=== PATIENT | male | born 1950 | race Caucasian/White ===

== ENCOUNTER → 2017-01-04 | Emergency (ER) | payer OTHER ==
[~2017-01-04] MED LIST: OLANZapine 10 MG TABLET ONE; OLANZapine 10 MG TABLET PO ONE
[2017-01-04 22:49] VITALS: BMI 30.4
--- NOTE | 2017-01-05 00:07 | PDOC ---
History of Present Illness - History of Present Illness Initial Comments: 01/05/17 00:36 Patient is a 66 year old male, from [facility], with significant medical hx of schizophrenia, HLD, GERD, and thyroid disorder who was sent to the ED for refusal of taking psychiatric medications and psychosis. Patient refuses to take his medications because he believes that he is "healed". The patient states that Nathen has healed him of his ailments and that he has been on the Tillson. The patient is supposed to be taking Zyprexa for his schizophrenia. The patient does not offer any complaints, including any pain. [facility] #: [phone] <Marixa Bass - Last Filed: 01/05/17 00:36> <Isrrael Jett - Last Filed: 01/05/17 02:09> <Isabel Goldstein - Last Filed: 01/06/17 22:39> - General Chief Complaint: Psychiatric Stated Complaint: PSYCH EVAL Time Seen by Provider: 01/04/17 22:44 Past History <Marixa Bass - Last Filed: 01/05/17 00:36> - Past Medical History Psychiatric Problems: Yes (SCHIZOPHRENIA) - Immunization History Immunization Up to Date: Yes - Psycho/Social/Smoking Cessation Hx Suicidal Ideation: No Smoking History: Unknown if ever smoked Information on smoking cessation initiated: No Hx Alcohol Use: No Drug/Substance Use Hx: No <Isrrael Jett - Last Filed: 01/05/17 02:09> <Isabel Goldstein - Last Filed: 01/06/17 22:39> - Past Medical History Allergies/Adverse Reactions: Allergies Allergy/AdvReac Type Severity Reaction Status Date / Time No Known Allergies Allergy Verified 01/04/17 22:47 Home Medications: Ambulatory Orders Amantadine HCl [Symmetrel -] 100 mg PO BID 01/04/17 Ascorbic Acid [Vitamin C] 500 mg PO DAILY 01/04/17 Aspirin [ASA -] 81 mg PO DAILY 01/04/17 Cholecalciferol (Vitamin D3) [Vitamin D3] 2,000 unit PO DAILY 01/04/17 Fluticasone Prop 0.05% Nasal [Flonase -] 1 - 2 spray NS DAILY 01/04/17 Hydrocortisone 0.5% Cream [Hytone 0.5% Cream -] 1 applic TP DAILY 01/04/17 Ibuprofen [Motrin -] 200 mg PO QID 01/04/17 Levothyroxine [Synthroid -] 112 mcg PO DAILY 01/04/17 Multivitamin [Poly-Vitamin] 1 each PO DAILY 01/04/17 Omeprazole 20 mg PO DAILY 01/04/17 Sennosides [Senna] 8.6 mg PO DAILY 01/04/17 Simvastatin [Zocor -] 20 mg PO HS 01/04/17 Docusate Sodium [Colace -] 100 mg PO AM 01/05/17 Docusate Sodium [Colace -] 200 mg PO HS 01/05/17 Iron 325 mg PO TID 01/05/17 Melatonin 5 mg PO HS 01/05/17 Olanzapine [Zyprexa -] 15 mg PO HS 01/05/17 Olanzapine [Zyprexa -] 20 mg PO HS 01/05/17 Trazodone HCl [Desyrel -] 50 mg PO HS 01/05/17 Zolpidem Tartrate [Ambien] 10 mg PO HS 01/05/17 Review of Systems - Review of Systems Comments:: 01/05/17 00:40 GENERAL/CONSTITUTIONAL: No fever or chills. No weakness. HEAD, EYES, EARS, NOSE AND THROAT: No change in vision. No ear pain or discharge. No sore throat. CARDIOVASCULAR: No chest pain or shortness of breath. RESPIRATORY: No cough, wheezing, or hemoptysis. GASTROINTESTINAL: No nausea, vomiting, diarrhea or constipation. GENITOURINARY: No dysuria, frequency, or change in urination. MUSCULOSKELETAL: No joint or muscle swelling or pain. No neck or back pain. SKIN: No rash NEUROLOGIC: No headache, vertigo, loss of consciousness, or change in strength/ sensation. <Marixa Bass - Last Filed: 01/05/17 00:36> *Physical Exam - Vital Signs Last Vital Signs Temp Pulse Resp BP Pulse Ox 97.5 F L 88 18 154/102 97 01/04/17 22:37 01/04/17 22:37 01/04/17 22:37 01/04/17 22:37 01/04/17 22:37 - Physical Exam Comments: 01/05/17 00:40 GENERAL: Awake, alert, in no acute distress HEAD: No signs of trauma EYES: PERRLA, EOMI, sclera anicteric, conjunctiva clear ENT: Auricles normal inspection, hearing grossly normal, nares patent, oropharynx clear without exudates. Moist mucosa NECK: Normal ROM, supple, no lymphadenopathy, JVD, or masses LUNGS: Breath sounds equal, clear to auscultation bilaterally. No wheezes, and no crackles HEART: Regular rate and rhythm, normal S1 and S2, no murmurs, rubs or gallops ABDOMEN: Soft, nontender, normoactive bowel sounds. No guarding, no rebound. No masses EXTREMITIES: Normal range of motion, no edema. No clubbing or cyanosis. No cords, erythema, or tenderness NEUROLOGICAL: Psychosis. Intermittently yelling and screaming. Cranial nerves II through XII grossly intact. Normal speech, normal gait SKIN: Warm, Dry, normal turgor, no rashes or lesions noted. ENDOCRINE: No increased thirst. No abnormal weight change. HEMATOLOGIC/LYMPHATIC: No anemia, easy bleeding, or history of blood clots. ALLERGIC/IMMUNOLOGIC: No hives or skin allergy. <Marixa Bass - Last Filed: 01/05/17 00:36> - Vital Signs Last Vital Signs Temp Pulse Resp BP Pulse Ox 97.5 F L 88 18 154/102 97 01/04/17 22:37 01/04/17 22:37 01/04/17 22:37 01/04/17 22:37 01/04/17 22:37 <Isrrael Jett - Last Filed: 01/05/17 02:09> - Vital Signs Last Vital Signs Temp Pulse Resp BP Pulse Ox 97.5 F L 75 18 141/84 97 01/04/17 22:37 01/05/17 07:05 01/05/17 07:05 01/05/17 07:05 01/05/17 07:05 <Isabel Goldstein - Last Filed: 01/06/17 22:39> ED Treatment Course - LABORATORY CBC & Chemistry Diagram: 01/05/17 00:55 01/05/17 00:55 <Isrrael Jett - Last Filed: 01/05/17 02:09> - LABORATORY CBC & Chemistry Diagram: 01/05/17 00:55 01/05/17 00:55 - ADDITIONAL ORDERS Additional order review: Laboratory Results 01/05/17 01/05/17 00:55 00:55 Sodium 134 L Potassium 4.1 Chloride 96 L Carbon Dioxide 24 Anion Gap 14 BUN 14 Creatinine 1.0 Creat Clearance w eGFR > 60 Random Glucose 98 Calcium 9.3 Total Bilirubin 0.6 AST 34 ALT 29 Alkaline Phosphatase 64 Ammonia 21.95 Total Protein 8.0 Albumin 4.4 TSH 4.66 H 01/05/17 00:55 RBC 4.95 MCV 88.1 MCHC 33.9 RDW 13.1 MPV 8.3 Neutrophils % 82.9 H Lymphocytes % 8.8 Monocytes % 7.6 Eosinophils % 0.3 Basophils % 0.4 <Isabel Goldstein - Last Filed: 01/06/17 22:39> Medical Decision Making - Medical Decision Making 01/05/17 00:07 A portion of this note was documented by scribe services under my direction. I have reviewed the details of the note, within reason, and agree with the documentation with the following case summary and management plan written by me. Patient treated in the ED. Nursing notes are reviewed and incorporated into the medical decision-making. Vital signs reviewed. Peripheral IV access obtained by the nurse, laboratory studies are drawn and sent, reviewed and interpreted by myself. Vital Signs Temp Pulse Resp BP Pulse Ox 97.5 F L 88 18 154/102 97 01/04/17 22:37 01/04/17 22:37 01/04/17 22:37 01/04/17 22:37 01/04/17 22:37 66-year-old male with past medical history of schizophrenia, hyperlipidemia, thyroid disorder, GERD presents from assisted living facility [facility], telephone number, sent in for refusing to take his psych medications and psychosis. The patient himself declines any complaints though appears to be in psychosis. Patient responds that he has no problems as Nathen has healed always problems. That he has been on the [place]son and that he has no issues. The patient does appear to have psychosis at this time. He supposed to be taking Zyprexa. He refuses take medications as he believes that he is well. The patient will need medical clearance. I had left a message on child and adolescent psychologist Richard for consultation. 01/05/17 01:04 Richard had came an evaluated patient. He will have Dr. Hartley see the patient in the AM and will obtain collateral from the assisted living facility. Will obtain medical clearance labs and ECG. Pt will likely need psych admission. CBC, BMP 01/05/17 00:55 01/05/17 00:55 CMP Sodium 134 mmol/L (136-145) L 01/05/17 00:55 Potassium 4.1 mmol/L (3.5-5.1) 01/05/17 00:55 Chloride 96 mmol/L (98-107) L 01/05/17 00:55 Carbon Dioxide 24 mmol/L (21-32) 01/05/17 00:55 Anion Gap 14 (8-16) 01/05/17 00:55 BUN 14 mg/dL (7-18) 01/05/17 00:55 Creatinine 1.0 mg/dL (0.7-1.3) 01/05/17 00:55 Creat Clearance w eGFR > 60 (>60) 01/05/17 00:55 Random Glucose 98 mg/dL (74-106) 01/05/17 00:55 Calcium 9.3 mg/dL (8.5-10.1) 01/05/17 00:55 Total Bilirubin 0.6 mg/dL (0.2-1.0) 01/05/17 00:55 AST 34 U/L (15-37) 01/05/17 00:55 ALT 29 U/L (12-78) 01/05/17 00:55 Alkaline Phosphatase 64 U/L (45-117) 01/05/17 00:55 Ammonia 21.95 umol/L (11-32) 01/05/17 00:55 Total Protein 8.0 g/dl (6.4-8.2) 01/05/17 00:55 Albumin 4.4 g/dl (3.4-5.0) 01/05/17 00:55 01/05/17 01:32 Case signed out to oncoming ED attending Dr. Goldstein for further management and disposition. <Isrrael Jett - Last Filed: 01/05/17 02:09> - Medical Decision Making 01/05/17 07:06 Pt signed out to me; he has a hx of schizophrenia and he refuses to take meds. He will require involuntary admission. [facility] [facility] psych Ramirez came to see the patient and ordered labs; Dr. Hartley will see the patient in the AM. Pt turned over to the day ER doctor <Isabel Goldstein - Last Filed: 01/06/17 22:39> *DC/Admit/Observation/Transfer - Attestations Scribe Attestion: 01/05/17 00:42 Documentation prepared by Marixa Bass, acting as medical services assistant for Isrrael Jett MD. <Marixa Bass - Last Filed: 01/05/17 00:36> <Isrrael Jett - Last Filed: 01/05/17 02:09> <Isabel Goldstein - Last Filed: 01/06/17 22:39> Diagnosis at time of Disposition: Schizophrenia - Discharge Dispostion Disposition: HOME Condition at time of disposition: Improved - Referrals Referrals: STAFF,NOT ON [Primary Care Provider] - - Patient Instructions Printed Discharge Instructions: DI for Schizophrenia Additional Instructions: Follow up with your psychiatrist as an outpatient.
[2017-01-05 01:11] LABS: BASOPHIL 0.4 % (0-2.0); EOSINOPHIL 0.3 % (0-4.5); MCH 29.8 pg (25.7-33.7); MCHC 33.9 g/dl (32.0-35.9); MEAN CELL VOLUME 88.1 fl (80-96); MEAN PLT VOLUME 8.3 fl (7.5-11.1); NEUTROPHILS 82.9 % (42.8-82.8); PLATELET COUNT 260 K/MM3 (134-434); RDW 13.1 % (11.9-15.9); WHITE BLOOD COUNT 11.6 K/mm3 (4.0-10.0)
[2017-01-05 01:38] LABS: ALBUMIN 4.4 g/dl (3.4-5.0); ANION GAP 14 (8-16); BILIRUBIN,TOTAL 0.6 mg/dL (0.2-1.0); CALCIUM 9.3 mg/dL (8.5-10.1); CO2 24 mmol/L (21-32); COCKROFT - GAULT 90.44; GLUCOSE,RANDOM 98 mg/dL (74-106); SGOT/AST 34 U/L (15-37); SGPT/ALT 29 U/L (12-78)
[2017-01-05 01:39] LABS: ALK PHOS 64 U/L (45-117)
[2017-01-05 02:10] LABS: THYROID STIMULATING HORMONE 4.66 uIU/ml (0.358-3.74)
[2017-01-05 12:46] LABS: URINE APPEARANCE CLEAR; URINE BILIRUBIN NEGATIVE (NEGATIVE); URINE BLOOD NEGATIVE (NEGATIVE); URINE COLOR LTYELLOW; URINE GLUCOSE (UA) NEGATIVE (NEGATIVE); URINE KETONE TRACE (NEGATIVE); URINE LEUK ESTERASE NEGATIVE (NEGATIVE); URINE NITRITE NEGATIVE (NEGATIVE); URINE PROTEIN NEGATIVE (NEGATIVE); URINE UROBILINOGEN NEGATIVE E.U./dl (0.2-1.0)
[2017-01-05 12:52] LABS: URINE MARIJUANA THC NEGATIVE ng/ml (CUTOFF=50)
--- NOTE | 2017-01-05 14:29 | CON.PSY ---
Psychiatry Consult Symptoms: reports: Delusions, Hallucinations - Previous Psychiatric Treatment Outpatient: Less than 6 mos ago Inpatient: 2 or more prior admissions - Previous Substance Abuse Treatment Outpatient: Less than 6 mos ago Inpatient: 2 or more prior admissions - Reason for Previous Treatment Reason for Previous Treatment: Psychotic Episode - Allergies Allergies: Allergies Allergy/AdvReac Type Severity Reaction Status Date / Time No Known Allergies Allergy Verified 01/04/17 22:47 - Current Living Status Usual Living Arrangement: Assisted Living - Current Mental Status Evaluation Appearance: Disheveled Attitude: Guarded - Affect Affect: Constrictive Appropriateness: Appropriate to Content - Mood Mood: Euthymic - Speech/Language Expressive: Coherent - Psychomotor Activity Psychomotor Activity: Normal - Thought Process Thought Process: Intact - Thought Content Hallucinations: Absent Delusions: Present Type: Grandiose - Self Perception Self Perception: No Impairment - Cognition Attention: Alert Orientation: Time Memory, Immediate Recall: Intact Memory, Short Term: 2/3 Memory, Remote with Promptin/3 - Concentration Serial Sevens Intact: No Simple Calculations Intact: No - Abstraction Proverb Interpretation: Impaired Judgement: Minimally Impaired - Insight Insight: Impaired - Impulse Control Impulse Control: Minimally Impaired - Suicidal Ideation Suicidal Ideation: No - Homicidal Ideation Homicidal Ideation: No Assessment/Plan 1)Zyprexa 40mg po od. 2) patient is not acutely suicidal or Homicidal at this time. 3) return to Detention.
--- NOTE | 2017-01-05 14:32 | PDOC ---
*Physical Exam - Vital Signs Last Vital Signs Temp Pulse Resp BP Pulse Ox 97.5 F L 106 H 18 123/88 97 01/04/17 22:37 01/05/17 12:47 01/05/17 12:47 01/05/17 12:47 01/05/17 12:47 ED Treatment Course - LABORATORY CBC & Chemistry Diagram: 01/05/17 00:55 01/05/17 00:55 - ADDITIONAL ORDERS Additional order review: Laboratory Results 01/05/17 01/05/17 12:30 00:02 Urine Color Ltyellow Urine Appearance Clear Urine pH 6.0 Urine Protein Negative Urine Glucose (UA) Negative Urine Ketones Trace H Urine Blood Negative Urine Nitrite Negative Urine Bilirubin Negative Urine Urobilinogen Negative Ur Leukocyte Esterase Negative Opiates Screen Negative Methadone Screen Negative Barbiturate Screen Negative Phencyclidine Screen Negative Ur Amphetamines Screen Negative MDMA (Ecstasy) Screen Negative Benzodiazepines Screen Negative Cocaine Screen Negative U Marijuana (THC) Screen Negative 01/05/17 00:55 RBC 4.95 MCV 88.1 MCHC 33.9 RDW 13.1 MPV 8.3 Neutrophils % 82.9 H Lymphocytes % 8.8 Monocytes % 7.6 Eosinophils % 0.3 Basophils % 0.4 Medical Decision Making - Medical Decision Making 01/05/17 14:29 Pt signed out to [place] pt was evaluated by dr. Hartley recommends restarting his meds and pt can be discharged back to his facility with outpatient fu *DC/Admit/Observation/Transfer Diagnosis at time of Disposition: Schizophrenia Qualifiers: Schizophrenia type: undifferentiated schizophrenia Qualified Code(s): F20.3 - Undifferentiated schizophrenia - Discharge Dispostion Disposition: HOME Condition at time of disposition: Improved Admit: No - Referrals Referrals: STAFF,NOT ON [Primary Care Provider] - - Patient Instructions Printed Discharge Instructions: DI for Schizophrenia Additional Instructions: Follow up with your psychiatrist as an outpatient. - Post Discharge Activity
[2017-01-05 18:14] VITALS: BP 142/92; PULSE 98; TEMP 97.8
--- NOTE | 2017-01-07 12:49 | EKG ---
Test Reason : Blood Pressure : / mmHG Vent. Rate : 093 BPM Atrial Rate : 093 BPM P-R Int : 162 ms QRS Dur : 130 ms QT Int : 366 ms P-R-T Axes : 050 -66 063 degrees QTc Int : 455 ms NORMAL SINUS RHYTHM RIGHT BUNDLE BRANCH BLOCK LEFT ANTERIOR FASCICULAR BLOCK BIFASCICULAR BLOCK ABNORMAL ECG NO PREVIOUS ECGS AVAILABLE Confirmed by RACHEL CARLOS MD ([id number]) on 01/07/2017 12:49:24 PM Referred By: Confirmed By:RACHEL CARLOS MD
== END | disposition home or self-care (01) ==
LOC: JER 22:19
DX: F20.3 Undifferentiated schizophrenia (principal); E78.00 Pure hypercholesterolemia, unspecified; K21.9 Gastro-esophageal reflux disease without esophagitis; E03.9 Hypothyroidism, unspecified
CPT/HCPCS: 36415; 80053; 80307; 81003; 82140; 84443; 85025; 86593; 93005; 93010; 99285-25